=== PATIENT | female | born 1980 | race Caucasian/White ===

== ENCOUNTER → 2017-02-21 | Outpatient (CLI) | payer OTHER ==
[~2017-02-21] MED LIST: GADOBUTROL 7.5 MMOL/7.5 ML VIAL IV ONE
--- NOTE | 2017-02-21 09:38 | RAD ---
MRI Brain with and without contrast History: Left-sided facial numbness with bilateral arm numbness, intermittent visual field deficits of the left eye Technique: Multiplanar, multi sequential pre and postcontrast MR imaging was performed of the brain. Contrast: 7.5 cc Gadavist Comparison: None Findings: There is mild motion. There is a 4 to 5 mm focus of diffusion of the left wise radiata with associated mild T2 and FLAIR hyperintense signal. No other focus of restricted diffusion is identified. There is no intra-axial mass effect, midline shift, extra axial fluid collection, nodular parenchymal or leptomeningeal enhancement. There is no significant hemosiderin deposition of the brain parenchyma. There is preservation of the major arterial intracranial flow voids at the skull base although than the right vertebral artery flow-void which may be hypoplastic. Mastoid air cells are overall aerated. There is mild bilateral maxillary sinus mucosal thickening, also patchy very minimal right sphenoid sinus, left frontal sinus, and bilateral ethmoid air cell mucosal thickening. Impression: 1. There is a small 4 to 5 mm focus of signal abnormality of the left wise radiata which may be due to a small subacute infarct. Other consideration would be a small focus of demyelination. There is no abnormal intracranial enhancement. FOR INTERNAL CODING PURPOSES Critical result: Findings discussed with Raleigh Servin at 02/21/2017 9:30 AM. RESULT CODE: (C) Electronically signed by: Pedro Luis Hernandez MD (02/21/2017 9:35 AM) [id number]
== END | disposition home or self-care (01) ==
LOC: MAMMO 08:16
PROVIDERS: ATTEND Physician Assistant Medical
DX: H53.40 Unspecified visual field defects (principal); R20.2 Paresthesia of skin; F17.210 Nicotine dependence, cigarettes, uncomplicated
CPT/HCPCS: 70553; A9585